=== PATIENT | female | born 1965 | race Caucasian/White ===

== ENCOUNTER 2016-11-25 14:28 | Emergency (ER) | payer OTHER ==
[~2016-11-25] VITALS: Ht 165.1 cm; Wt 86.2 kg
[2016-11-25 16:54] VITALS: BP 153/91
== END 2016-11-25 16:54 | disposition home or self-care (01) ==
LOC: ED 14:28
DX: J20.8 Acute bronchitis due to other specified organisms (principal); M54.10 Radiculopathy, site unspecified; Z79.899 Other long term (current) drug therapy
CPT/HCPCS: J7620

== ENCOUNTER 2017-01-06 19:21 | Emergency (ER) | payer OTHER ==
[2017-01-06 20:59] VITALS: BP 107/65
== END 2017-01-06 20:59 | disposition home or self-care (01) ==
LOC: ED 19:21
DX: S63.91XA Sprain of unspecified part of right wrist and hand, initial encounter (principal); X58.XXXA Exposure to other specified factors, initial encounter; Y93.89 Activity, other specified; Y99.8 Other external cause status; Y92.89 Other specified places as the place of occurrence of the external cause

== ENCOUNTER 2017-02-10 23:13 | Emergency (ER) | payer OTHER ==
[2017-02-10 23:34] VITALS: BP 143/94
== END 2017-02-11 01:27 | disposition home or self-care (01) ==
LOC: ED 23:13
DX: M25.531 Pain in right wrist (principal); R03.0 Elevated blood-pressure reading, without diagnosis of hypertension; E89.0 Postprocedural hypothyroidism; M54.10 Radiculopathy, site unspecified; Z85.850 Personal history of malignant neoplasm of thyroid; Z86.73 Personal history of transient ischemic attack (TIA), and cerebral infarction without residual deficits

== ENCOUNTER 2017-09-17 17:32 | Emergency (ER) | payer OTHER ==
[~2017-09-17] VITALS: Ht 165.1 cm; Wt 87.1 kg
[2017-09-17 17:35] VITALS: Ht 165.1 cm; Wt 87.1 kg
[2017-09-17 19:41] VITALS: BP 125/68
== END 2017-09-17 19:41 | disposition home or self-care (01) ==
LOC: ED 17:32
DX: S80.12XA Contusion of left lower leg, initial encounter (principal); M79.641 Pain in right hand; M79.1 Myalgia; R03.0 Elevated blood-pressure reading, without diagnosis of hypertension; V87.8XXA Person injured in other specified noncollision transport accidents involving motor vehicle (traffic), initial encounter; Y93.55 Activity, bike riding; Y92.410 Unspecified street and highway as the place of occurrence of the external cause; Y99.8 Other external cause status
CPT/HCPCS: J1885

== ENCOUNTER 2018-03-16 12:35 | Emergency (ER) | payer OTHER ==
[~2018-03-16] VITALS: Ht 165.1 cm; Wt 85.7 kg
[2018-03-16 15:54] VITALS: BP 124/78
== END 2018-03-16 15:54 | disposition home or self-care (01) ==
LOC: ED 12:35
DX: S50.01XA Contusion of right elbow, initial encounter (principal); S20.219A Contusion of unspecified front wall of thorax, initial encounter; S60.221A Contusion of right hand, initial encounter; W05.1XXA Fall from non-moving nonmotorized scooter, initial encounter; Y93.89 Activity, other specified; Y92.89 Other specified places as the place of occurrence of the external cause; Y99.8 Other external cause status
CPT/HCPCS: J1885

== ENCOUNTER 2019-01-09 14:52 | Emergency (ER) | payer OTHER ==
[~2019-01-09] VITALS: Ht 165.1 cm; Wt 86.2 kg
[2019-01-09 15:02] VITALS: Ht 165.1 cm; Wt 86.2 kg
[2019-01-09 16:12] LABS: BASOPHIL % 0.3 % (0-2); PLATELET COUNT 203 x10^3mcL (130-400); RED CELL DISTRIBUTION WIDTH 13.5 % (11.5-14.5)
[2019-01-09 16:17] LABS: CALCIUM 6.9 mg/dL (8.5-10.1); CARBON DIOXIDE 29.4 mmol/L (21-32); CHLORIDE SERUM 103 mmol/L (98-107); CREATININE SERUM 0.7 mg/dL (0.6-1.0); GFR1 > 60 mL/min; GLUCOSE SERUM 80 mg/dL (74-106); POTASSIUM SERUM 3.9 mmol/L (3.5-5.1); SODIUM SERUM 138 mmol/L (136-145)
[2019-01-09 16:23] LABS: ALBUMIN 3.4 g/dL (3.4-5.0); ALKALINE PHOSPHATASE 92 U/L (46-116); ALT/SGPT 58 U/L (14-59); AST/SGOT 47 U/L (15-37); BILIRUBIN TOTAL 0.25 mg/dL (0.20-1.00); TOTAL PROTEIN, SERUM 7.7 g/dL (6.4-8.2)
[2019-01-09 20:55] VITALS: BP 125/84
== END 2019-01-09 20:55 | disposition home or self-care (01) ==
LOC: ED 14:52
PROVIDERS: Emergency Medicine
DX: M79.604 Pain in right leg (principal); M25.571 Pain in right ankle and joints of right foot; E83.51 Hypocalcemia; F17.210 Nicotine dependence, cigarettes, uncomplicated; Z86.73 Personal history of transient ischemic attack (TIA), and cerebral infarction without residual deficits; Z98.51 Tubal ligation status; Z85.850 Personal history of malignant neoplasm of thyroid; Z98.890 Other specified postprocedural states
CPT/HCPCS: 36415; 99406; J1885; J2270; Q0092

== ENCOUNTER 2019-10-03 12:06 | Emergency (ER) | payer SELFPAY ==
[~2019-10-03] VITALS: Ht 165.1 cm; Wt 81.6 kg
[2019-10-03 12:17] VITALS: BP 152/90; Ht 165.1 cm; Wt 81.6 kg
== END 2019-10-03 13:30 | disposition left against medical advice (07) ==
LOC: ED 12:06
DX: Z53.21 Procedure and treatment not carried out due to patient leaving prior to being seen by health care provider (principal)

== ENCOUNTER 2019-10-07 02:41 | Inpatient (IN) | payer SELFPAY ==
[~2019-10-07] VITALS: Ht 165.1 cm; Wt 90.3 kg
--- NOTE | 2019-10-07 03:01 | NUR ---
PATIENT AAOX4 PRESENTS TO THE ED WITH NON PRODUCTIVE COUGH X 2 DAYS. BREATHING E/U , RHONCHI NOTED TO BILATERAL UPPER LOBES, DIMINISHED LOWER LOBES BILATERALLY. ABD SOFT, NON DISTENDED, NON TENDER, SKIN WARM DRY AND INTACT. NO OTHER SS OF DISTRESS NOTED. WILL CONTINUE TO MONITOR.
--- NOTE | 2019-10-07 03:15 | NUR ---
RADIOLOGY BEDSIDE FOR CHEST X RAY.
--- NOTE | 2019-10-07 03:35 | NUR ---
RESPIRATORY BEDSIDE PROVIDING BREATHING TX.
--- NOTE | 2019-10-07 05:04 | NUR ---
PATIENT LYING ON GURNEY, NO SS OF DISTRESS NOTED. WILL CONTINUE TO MONITOR.
[2019-10-07 05:06] LABS: BASOPHIL % 0.9 % (0-2); PLATELET COUNT 160 x10^3mcL (130-400); RED CELL DISTRIBUTION WIDTH 13.3 % (11.5-14.5)
[2019-10-07 05:18] LABS: CALCIUM 7.5 mg/dL (8.5-10.1); CARBON DIOXIDE 31.1 mmol/L (21-32); CHLORIDE SERUM 103 mmol/L (98-107); CREATININE SERUM 0.7 mg/dL (0.6-1.0); GFR1 > 60 mL/min; GLUCOSE SERUM 112 mg/dL (74-106); POTASSIUM SERUM 3.3 mmol/L (3.5-5.1); SODIUM SERUM 141 mmol/L (136-145)
[2019-10-07] MEDS ORDERED: ROCALTROL0.5 MCG PO (05:32)
[2019-10-07] MEDS ORDERED: HORIZANT300 MG PO (05:32)
[2019-10-07] MEDS ORDERED: ASPIR 8181 MG PO (05:33)
[2019-10-07] MEDS ORDERED: EUTHYROX125 MCG PO (05:33)
[2019-10-07] MEDS ORDERED: IBU600 M2 PO (05:34)
--- NOTE | 2019-10-07 05:39 | NUR ---
DR MEDINA BEDSIDE DISCUSSING PLAN OF CARE.
--- NOTE | 2019-10-07 05:40 | NUR ---
REVIEWED LABS AND DIAGNOSTICS
[2019-10-07 06:29] LABS: microscopic required? NO
--- NOTE | 2019-10-07 06:33 | NUR ---
SUBMITTED URINE TO LABS PER MD ORDERS--
[2019-10-07 06:57] LABS: urine erythrocyte NEGATIVE (NEGATIVE)
[2019-10-07 07:02] LABS: CHOLESTEROL/HDL RATIO 2.6
[2019-10-07 07:14] LABS: AMPHETAMINE QUAL UR POSITIVE (See below)
--- NOTE | 2019-10-07 07:26 | NUR ---
RECEIVED CALL FROM NAHOMY DELGADILLO IN ED. AWAITING PATIENT ARRIVAL TO FLOOR.
--- NOTE | 2019-10-07 07:30 | NUR ---
REPORT PROVIDED TO ELIE ARANA FOR CONTINUED CARE OF PATIENT TO ROOM 205A - TELEMETRY.
[2019-10-07 07:44] LABS: FREE T4 0.88 ng/dL (0.76-1.46); FREE THYROXINE INDEX 2.7 ug/dL (1.4-4.5); T4(THYROXINE) 8.6 ug/dL (4.7-13.3)
--- NOTE | 2019-10-07 07:51 | NUR ---
RECEIVED PATIENT FROM ED TO ROOM 205-A. PATIENT RESTING COMFORTABLY IN BED. SALINE LOCK NOTED TO RT HAND. TELE MONITOR # 28 APPLIED. PT DENIES CHEST PAIN. VITALS TAKEN AND STABLE . PT ON ROOM AIR SAT AT 94%. PT HAS SEVERE COUGH WIEN SPEAKING AND REPORTS THROAT PAIN. NO OTHER PAIN REPORTED. ALL QUESTIONS AND CONCERNS ADDRESSED.
[2019-10-07 08:18] LABS: CALCIUM 7.2 mg/dL (8.5-10.1); CARBON DIOXIDE 28.1 mmol/L (21-32); CHLORIDE SERUM 104 mmol/L (98-107); CREATININE SERUM 0.7 mg/dL (0.6-1.0); GFR1 > 60 mL/min; GLUCOSE SERUM 113 mg/dL (74-106); POTASSIUM SERUM 3.8 mmol/L (3.5-5.1); SODIUM SERUM 143 mmol/L (136-145)
[2019-10-07 08:22] LABS: T3 TOTAL 1.11 ng/mL
[2019-10-07 10:21] VITALS: BP 121/59
--- NOTE | 2019-10-07 11:35 | NUR ---
DIET REQUESTED FOR PATIENT. REGULAR ORDERED.
[2019-10-07 13:09] VITALS: BP 125/73
--- NOTE | 2019-10-07 16:23 | NUR ---
CROSS TIE TURNER AT BEDSIDE.
--- NOTE | 2019-10-07 16:44 | NUR ---
ECHOCARDIOGRAM COMPLETED.
[2019-10-07 17:18] VITALS: BP 133/62
[2019-10-07 18:02] VITALS: BP 125/75
--- NOTE | 2019-10-07 19:29 | NUR ---
REPORT GIVEN TO STAS DELGADILLO. PT RESTING COMFORTABLY IN BED WITH ALL NEEDS MET. ALL QUESTIONS AND CONCERNS ADDRESSED. ALL CARES ENDORSED.
--- NOTE | 2019-10-07 19:30 | NUR ---
RECEIVED PT IN BED RESTING QUIETLY. SHE IS ALERT,ORIENTED X4. LUNG SOUNDS W/ CRACKLES ON UPPER LOBES AND DIMINISHED AT THE BASES. NO SOB NOTED ON ROOM AIR. NO C/O PAIN AT THIS TIME. W/ HL TO RT HAND. CALL LIGHT W/IN REACH.
[2019-10-07 20:58] VITALS: BP 125/67
--- NOTE | 2019-10-07 23:44 | NUR ---
PT ASLEEP COMFORTABLY. SHE IS EASILY AROUSABLE. DUE PO MEDS GIVEN.
--- NOTE | 2019-10-08 01:07 | NUR ---
PT MEDICATED W/ TYLENOL FOR C/O HEADACHE 03/14.
--- NOTE | 2019-10-08 01:10 | NUR ---
ENDORSED PT TO ELIE REESE FOR CONTINUATION OF CARE.
--- NOTE | 2019-10-08 01:17 | NUR ---
PATIENT AWAKE/ALERT IN BED NO DISTRESS NOTED, RESUME CARE. PT WAS MEDICATED FOR CHAN WITH TYLENOL. DON'T NEED ANYTHING. CALL LIGHT WITHIN REACH.
--- NOTE | 2019-10-08 03:05 | NUR ---
PATIENT SLEEPING AT THIS TIME. NO DISTRESS NOTED. CALL LIGHT WITHIN REACH.
--- NOTE | 2019-10-08 05:35 | NUR ---
PATIENT SLEEPING AROUSABLE, NO COMPLAINS. ALL DUE MEDS GIVEN. PATIENT TOLERATED. NEEDS MET. CONT TO MONITOR.
[2019-10-08 05:38] VITALS: BP 106/63
[2019-10-08 06:59] LABS: PLATELET COUNT 165 x10^3mcL (130-400); RED CELL DISTRIBUTION WIDTH 13.6 % (11.5-14.5)
[2019-10-08 07:20] LABS: BASOPHIL % 0 % (0-2)
[2019-10-08 07:37] LABS: CALCIUM 7.4 mg/dL (8.5-10.1); CARBON DIOXIDE 28.2 mmol/L (21-32); CHLORIDE SERUM 103 mmol/L (98-107); CREATININE SERUM 0.7 mg/dL (0.6-1.0); GFR1 > 60 mL/min; GLUCOSE SERUM 139 mg/dL (74-106); MAGNESIUM 2.3 mg/dL (1.8-2.4); PHOSPHOROUS 4.5 mg/dL (2.5-4.9); POTASSIUM SERUM 4.3 mmol/L (3.5-5.1); SODIUM SERUM 141 mmol/L (136-145)
[2019-10-08 09:04] VITALS: BP 128/71
[2019-10-08] MEDS ORDERED: PREDNISONE20 MG PO (09:19)
[2019-10-08] MEDS ORDERED: LEVAQUIN500 M1 PO (09:19)
--- NOTE | 2019-10-08 09:43 | NUR ---
PATIENT SLEEPING AROUSABLE, NO DISTRESS NOTED. ALL PO MEDS AND SOLUMEDROL IVP GIVEN, ZITHROMAX IVPB INFUSING AT 250ML/HR TO RH IV PATENT. NO C/O PAIN. CALL LIGHT WITHIN REACH.
[2019-10-08 10:21] VITALS: BP 128/71
--- NOTE | 2019-10-08 11:43 | NUR ---
PATIENT IN BED AWAKE/ALERT, NO COMPLAIN. NO PAIN. SS ROLDAN AT BEDSIDE TALKING TO PATIENT, PER ROLDAN DON'T DISCHARGE PATIENT YET, NEED TO CLARIFIED INSURANCE. WILL CALL BACK TO UPDATE NURSE W/ STATUS.
--- NOTE | 2019-10-08 12:30 | NUR ---
patient sit up in bed no complains. tele #[id number] removed and gave to telephone sex worker Puja. PO med given. Patient tolerated.
--- NOTE | 2019-10-08 13:12 | NUR ---
RECEIVED PT FROM MARY ANN, PT SITTING ON THE EDGE OF THE BED RECEIVING A BREATHING TREATMENT. AAOX4. DENIES HEADACHE/DIZZINESS. NO SOB NOTED, LUNG SOUNDS CTA. DENIES CHEST PAIN/PRESSURE. DENIES ABDOMINAL DISCOMFORT. BOWEL SOUNDS ACTIVE. IV SITE PATENT AND INTACT. WAITING FOR SYRUP FILTERER TO CALL RN ABOUT PATIENT'S INSURANCE PRIOR TO DISCHARGE, PT AWARE. CALL LIGHT ON REACH. WILL CONT TO MONITOR
--- NOTE | 2019-10-08 13:15 | NUR ---
CALL CM TO F/U IF PATIENT CLEAR TO D/C HOME, SPOKE TO CACHORRO, PER CACHORRO WILL CALL BACK.
--- NOTE | 2019-10-08 13:17 | NUR ---
CARE ENDORSE AND REPORT TO MENDEZ DELGADILLO.
[2019-10-08 13:38] VITALS: BP 125/71
--- NOTE | 2019-10-08 14:00 | NUR ---
FLOWER GROWER LUISANA AT BEDSIDE.
--- NOTE | 2019-10-08 14:12 | NUR ---
DISCHARGE PAPERWORKS GIVEN TO THE PT INCLUDING MEDICAL FOLLOW-UP W/ PCP, HOME MEDICATIONS REVIEWED W/ THE PT. PT MADE AWARE THAT PT'S PRESCRIPTION IS ELECTRONICALLY SENT TO THE PHARMACY OF HER CHOICE. PT VERBALIZES UNDERSTANDING. IV REMOVED, CATHETER INTACT. PT WHEELED DOWN BY LUIS MIGUEL TORRES, PT DISCHARGED
== END 2019-10-08 14:25 | disposition home or self-care (01) | DRG 202 ==
LOC: ED 02:41 → DU 05:25
PROVIDERS: Emergency Medicine; ADMIT Family Medicine
DX: J20.8 Acute bronchitis due to other specified organisms (principal); I69.354 Hemiplegia and hemiparesis following cerebral infarction affecting left non-dominant side; B19.20 Unspecified viral hepatitis C without hepatic coma; Z98.51 Tubal ligation status; E87.6 Hypokalemia; Z90.49 Acquired absence of other specified parts of digestive tract; F19.10 Other psychoactive substance abuse, uncomplicated
CPT/HCPCS: 83880; 84439; 87804; 90658; 90732; G0378; J0456; J2270; J2405; J2920; J2930; J3475; J3490; J7030; J7613; J7620; Q0092